=== PATIENT | female | born 1965 | race Caucasian/White ===

== ENCOUNTER 2019-01-20 03:28 | Emergency (ER) | payer OTHER ==
[~2019-01-20] VITALS: Ht 165.1 cm; Wt 77.1 kg
--- OUTSIDE RECORDS SUMMARY | 2019-01-20 03:31 | XMS REPORT | Summary of Care ---
Author Author SHANNA Michelle, COMFORT Organization Unknown Address Unknown Phone Unavailable Care Team Providers Care Director Web Name Role Phone SHANNA Michelle, COMFORT Unavailable Unavailable KASIA HANNA DO Unavailable Unavailable ARIELLE Michelle, JASEN Unavailable Unavailable ARIELLE GARCIA DC, JASEN Cueva Unavailable Unavailable Unavailable Unavailable Functional Status Name Dates Details Functional status health issues are not documented Status: Name Dates Details Cognitive status health issues are not documented Status: Problems Name Dates Details Vertigo (780.4, R42) Status: Active Allergic rhinitis (477.9, J30.9) Status: Active Left shoulder pain (719.41, M25.512) Status: Active 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, 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: Active Exercise-induced asthma (493.81, J45.990) Status: Active Breast screening (V76.10, Z12.31) Status: Active Post-menopausal bleeding (627.1, N95.0) Status: Active Screening for hyperlipidemia (V77.91, Z13.220) Status: Active Screen for colon cancer (V76.51, Z12.11) Status: Active High risk for colon cancer (V49.89, Z91.89) Status: Active Dyspareunia, female (625.0, N94.10) Status: Active Well woman exam with routine gynecological exam (V72.31, Z01.419) Status: Active Encounter for gynecological examination (V72.31, Z01.419) Status: Active Medications Name Dates Details Multivitamins CAPS TAKE 1 CAPSULE DAILY Active Vitamin B12 TABS TAKE 1 TABLET DAILY * Refills: 0 Active Iron TABS TAKE 1 TABLET DAILY * Refills: 0 Active Turmeric TABS TAKE 1 TABLET DAILY * Refills: 0 Active Osphena 60 MG Oral Tablet TAKE 1 TABLET DAILY * Quantity: 30 Refills: 3 SHANNA Michelle, COMFORT * Start : 26-Nov-2017 Active Allergies and Adverse Reactions Name Dates Details No Known Drug Allergies (Allergy) Status: Active Past Medical History Name Dates Details History of breast lump (V13.89, Z87.898) Status: Resolved History of Convulsions (780.39, R56.9) Status: Resolved History of Multiparity (V61.5, Z64.1) Status: Resolved Procedures Procedure Dates Details Colonoscopy Date: 20-Oct-2017 [H] Pap Liquid-based w/ HPV Date: 26-Nov-2017 History of Ear Surgery Completed History Of Prior Surgery Completed Immunization Name Dates Details Immunizations not documented Family History Name Dates Details Family history of Hypertension (V17.49) Status: Active Name Dates Details Family history of Hypertension (V17.49) Status: Active Social History Name Dates Details - Status: Name Dates Details Never smoker Never smoker Vital Signs Date Test Result Details 26-Nov-20178:43 BP Systolic 114 mm[Hg] Status: Comments: Location: LUE; Position: Sitting BP Diastolic 72 mm[Hg] Status: Comments: Location: LUE; Position: Sitting Height 65 in Status: Weight 174.125 lb Status: Body Mass Index Calculated 28.98 kg/m2 Status: Body Surface Area Calculated 1.87 m2 Status: Heart Rate 60 /min Status: Respiration Rate 16 /min Status: Results Date Description Value Details Results not documented Plan of Care Name Dates Details Planned Observations Planned Goals not documented Planned Encounters Appointment; JASEN GUZMÁN M.D. On: 16-Apr-2018 8:15 Interventions Provided Labs/Procedures/Imaging* [H] Pap Liquid-based w/ HPV; To Be Done: 26 Nov 2017 Plan* 1. Pap with HPV * 2. Discussed treatments for yelena/postmenopausal vaginal dryness and dyspareunia. Will try Osphena. If it doesn't help, she is open to trying vaginal estrogen creams. Instructions Name Dates Details Instructions not documented Encounters Appointment; KASIA FAIR M.D. Encounter Diagnosis: Problem not documented On: 30-Sep-2017 8:45 Appointment; JASEN GUZMÁN M.D. Encounter Diagnosis: Problem not documented On: 16-Oct-2017 13:30 Appointment; RADHA HERNANDEZ M.D. Encounter Diagnosis: Problem not documented On: 20-Oct-2017 10:00 Appointment; KASIA FAIR M.D. Encounter Diagnosis: Problem not documented On: 11-Nov-2017 8:45 Appointment; DALTON OTERO M.D. Encounter Diagnosis: Problem not documented On: 26-Nov-2017 8:30
[2019-01-20 03:53] LABS: BASOPHILS # (AUTO) 0.1 (0.0-0.1); BASOPHILS % 0.8 % (0.0-1.0); EOSINOPHILS # (AUTO) 0.2 (0.0-0.4); EOSINOPHILS % 2.5 % (0.0-6.0); HEMATOCRIT 36.2 % (34.2-44.1); HEMOGLOBIN 12.6 g/dL (12.0-16.0); LYMPHOCYTES # (AUTO) 2.6 (1.0-3.2); LYMPHOCYTES % 42.8 % (18.0-39.1); MEAN CORPUSCULAR HEMOGLOBIN 32.1 pg (28-32); MEAN CORPUSCULAR HGB CONC 34.8 g/dL (31-35); MEAN CORPUSCULAR VOLUME 92.3 fL (81-99); MONOCYTES # (AUTO) 0.6 (0.2-0.8); NEUTROPHILS # (AUTO) 2.6 (2.1-6.9); NEUTROPHILS % 43.6 % (38.7-80.0); PLATELET COUNT 155 x10e3/uL (140-360); RED BLOOD COUNT 3.92 x10e6/uL (3.6-5.1); RED CELL DISTRIBUTION WIDTH 11.9 % (11.7-14.4)
[2019-01-20 04:15] LABS: ALBUMIN 3.6 g/dL (3.5-5.0); ALBUMIN/GLOBULIN RATIO 1.1 (0.8-2.0); ANION GAP 8.9 mmol/L (8-16); CREATININE, SERUM 1.28 mg/dL (0.57-1.11); POTASSIUM 3.9 mmol/L (3.5-5.1)
--- NOTE | 2019-01-20 05:08 | Diagnostic Imaging Report ---
Ultrasound pelvis: Transabdominal CPT code: 31134 History: Postmenopausal bleeding Comparison: None. Technique: Images have been obtained through a distended bladder. LMP: 2018 Findings: Uterus: Measures 6.1 x 9.0 x 10.2 cm. The myometrial echotexture is normal. No evidence for fibroid. Endometrial stripe: 1.1 cm. It is linear and hyperechoic. No fluid in the endometrial canal. Cervix: Normal. Right ovary: 2.0 x 2.0 x 3.1 cm. Echotexture is normal. A cyst measures 10 x 13 x 16 mm. Left ovary: 2.1 x 3.4 x 3.4 cm. Echotexture is normal. A unilocular cyst measures 16 x 27 x 25 mm. No free fluid in the cul-de-sac. Blood flow is documented on color Doppler interrogation. IMPRESSION: Prominent endometrium for postmenopausal state. Endometrial biopsy is recommended. Normal ovaries. Signed by: Dr. Eloina Alvarado MD on 01/20/2019 5:05 AM
[2019-01-20 05:16] VITALS: BP 117/72
== END 2019-01-20 05:45 | disposition home or self-care (01) ==
LOC: ER 03:28
DX: N95.0 Postmenopausal bleeding (principal)
CPT/HCPCS: 36415; 76856; 80053; 85025; 99283